=== PATIENT | female | born 1950 | race Caucasian/White ===

== ENCOUNTER 2020-01-02 13:04 | Emergency (ER) | payer OTHER ==
[2020-01-02 13:13] VITALS: TEMP 98.4; BMI 17.2
--- NOTE | 2020-01-02 14:26 | PDOC ---
History of Present Illness - General Chief Complaint: Shortness of Breath Stated Complaint: LBP Time Seen by Provider: 01/02/20 14:12 History Source: Patient Exam Limitations: No Limitations - History of Present Illness Initial Comments: 01/02/20 14:45 69 y.o. F PMHx Pancreatitis and bronchitis. Presenting to [facility] ED due to 5 days of cough productive of white sputum and SOB that stated yesterday morning. Patient states she has pain in her back and chest with cough. Pt. stated she used to have inhalers for bronchitis but has not used them in years. Pt. denies chills, headache, fever, N/V/D. 01/02/20 14:58 PCP: Dr. Wagner PMHx: Pancreatitis, bronhitis Meds: In chart Allergies: Codeine CXR: No Acute pathology 01/02/20 17:45 Is this a multiple visit Asthma Patient?: No Timing/Duration: 1 week Severity: mild Modifying Factors: improves with: movement Associated Symptoms: reports: cough Aspirin Received prior to arrival: Yes: no aspirin today Beta Татьяна Given by EMS(Core Measure): No Beta Татьяна Taken at Home(Core Measure): No Beta Татьяна Not Indicated at this Time(Core Measure): No Past History - Travel History Traveled outside of the country in the last 30 days: No Close contact w/someone who was outside of country & ill: No - Medical History Allergies/Adverse Reactions: Allergies Allergy/AdvReac Type Severity Reaction Status Date / Time codeine Allergy Intermediate SOB Verified 01/02/20 13:06 Home Medications: Ambulatory Orders Diazepam [Valium] 5 mg PO Q8H #4 tablet MDD 2 02/16/17 Albuterol Sulfate Inhaler - [Ventolin HFA Inhaler -] 1 - 2 inh PO Q4H #1 inhaler 01/02/20 Azithromycin [Zithromax Tri-Anjel (3 DAYS) -] 500 mg PO DAILY #3 tablet 01/02/20 predniSONE [Deltasone -] 40 mg PO DAILY #4 tablet 01/02/20 COPD: No GI Disorders: Yes (H/O PANCREATITIS.) - Surgical History Abdominal Surgery: Yes Cholecystectomy: Yes - Psycho-Social/Smoking History Smoking History: Current every day smoker Have you smoked in the past 12 months: Yes Number of Cigarettes Smoked Daily: 10 Information on smoking cessation initiated: Yes 'Breaking Loose' booklet given: 02/16/17 - Substance Abuse Hx (Audit-C & DAST Scrn) How often the patient has a drink containing alcohol: Never Score: In Men: 4 or > Positive; In Women: 3 or > Positive: 0 Screen Result (Pos requires Nsg. Audit-10AR): Negative In the last yr the pt used illegal drug/Rx for NonMed reason: No Score: Yes response is considered Positive: 0 Screen Result (Positive result requires Nsg. DAST-10): Negative Review of Systems - Review of Systems Able to Perform ROS?: Yes Is the patient limited [place] proficient: No Constitutional: No: Chills, Fever HEENTM: No: Blurred Vision, Double Vision Respiratory: Yes: Shortness of Breath, Productive cough Cardiac (ROS): No: Chest Pain, Lightheadedness ABD/GI: No: Constipated, Diarrhea, Nausea, Vomiting : No: Burning, Dysuria Musculoskeletal: Yes: Back Pain. No: Muscle Pain, Muscle Weakness Integumentary: No: Bruising, Erythema, Flushing Neurological: No: Headache, Numbness, Dizziness Hematologic/Lymphatic: No: Easy Bleeding, Easy Bruising *Physical Exam - Vital Signs Last Vital Signs Temp Pulse Resp BP Pulse Ox 98.4 F 50 L 22 H 148/71 98 01/02/20 13:06 01/02/20 13:06 01/02/20 13:06 01/02/20 13:06 01/02/20 13:06 - Physical Exam General Appearance: Yes: Nourished, Appropriately Dressed. No: Apparent Distress Respiratory/Chest: positive: Lungs Clear, Normal Breath Sounds. negative: Chest Tender Cardiovascular: positive: Regular Rhythm, Regular Rate. negative: JVD, Murmur Gastrointestinal/Abdominal: positive: Normal Bowel Sounds, Flat, Soft. negative: Tender, Organomegaly, Pulsatile Mass Musculoskeletal: positive: Normal Inspection. negative: CVA Tenderness Extremity: positive: Normal Inspection, Normal Range of Motion. negative: Tender Integumentary: positive: Normal Color, Dry, Warm Neurologic: positive: Fully Oriented, Alert, Normal Response, Responsive. negative: Confused ED Treatment Course - LABORATORY CBC & Chemistry Diagram: 01/02/20 15:00 01/02/20 15:00 Medical Decision Making - Medical Decision Making 01/02/20 15:06 69 y.o. F PMHx Pancreatitis and bronchitis. Presenting to [facility] ED due to cough and SOB. DDx: COPD exacerbation, pneumonia, bronchitis, covid (low suspicion) CXR: Scoliosis, no acute chest pathology Labs: AST 9, ALT 11 EKG: NSR, L axis deviation Dispo: D/C home on prednisone, azithromycin, albuterol. 01/02/20 17:46 Discharge - Discharge Information Problems reviewed: Yes Clinical Impression/Diagnosis: Cough, Shortness of breath Condition: Improved Disposition: HOME - Admission No - Additional Discharge Information Prescriptions: predniSONE [Deltasone -] 40 mg PO DAILY #4 tablet Albuterol Sulfate Inhaler - [Ventolin HFA Inhaler -] 1 - 2 inh PO Q4H #1 inhaler Azithromycin [Zithromax Tri-Anjel (3 DAYS) -] 500 mg PO DAILY #3 tablet - Follow up/Referral Referrals: Pankaj Wagner MD [Primary Care Provider] - - Patient Discharge Instructions Patient Printed Discharge Instructions: DI for Shortness of Breath Additional Instructions: You presented to [facility] ED due to a cough and SOB. We treated you with steroids, antibiotics and albuterol inhaler. Please call 911 or follow up to the ED if you symptoms persist or worsen. This includes cough, SOB, dizziness. - Post Discharge Activity
[2020-01-02] MEDS ORDERED: ALBUTEROL SO4 HFA INHALER IH ONE ×2 (14:56→15:04)
[2020-01-02] MEDS ORDERED: predniSONE 20 MG TABLET (UD) PO ONE (15:14)
[2020-01-02] MEDS ORDERED: AZITHROMYCIN 250 MG TABLET PO ONE (15:15)
[2020-01-02] MEDS ORDERED: predniSONE 20 MG TABLET (UD) ONE (15:25)
[2020-01-02] MEDS ORDERED: AZITHROMYCIN 500 MG TABLET ONE (15:25)
--- NOTE | 2020-01-02 15:42 | PDOC ---
Documentation entered by Binu Corona SCRIBE, acting as scribe for Ana Luisa Mcmahan MD. Ana Luisa Mcmahan MD: This documentation has been prepared by the Cj amaral Xhesika, SCRIBE, under my direction and personally reviewed by me in its entirety. I confirm that the documentation accurately reflects all work, treatment, procedures, and medical decision making performed by me. Attending Attestation - Resident Resident Name: Jai Suarez - ED Attending Attestation I have performed the following: I have examined & evaluated the patient, The case was reviewed & discussed with the resident, I agree w/resident's findings & plan, Exceptions are as noted - HPI HPI: 01/02/20 14:18 69y/o F with a pmh of pancreatitis who presents to the ED for SOB since yesterday. Pt states 5 days ago she developed a cough with productive white sputum. Pt denies any CP, fever, chills, N/V/D. Denies any URI symptoms. States the SOB and cough are similar to previous episodes of COPD exacerbation/bronchitis or PNA however the R upper back pain is new for her. Allergies: COdeine PCP: Pankaj Castanon - Physicial Exam PE: 01/02/20 15:39 General: non-toxic appearing Chest: +tachypnea, speaking in full sentences, poor air entry, no audible wheezes, no rales CVS : + s1 s2, RRR Back: no midline or paraspinal tenderness - Medical Decision Making 01/02/20 15:40 69 yo F with new productive cough, SOB and R upper back pain, neurologically intact, suspect COPD exacerbation, possibly 2/2 PNA vs. viral syndrome. Doubt ACS as patient denies CP and EKG sinus without ischemic changes. Plan: -labs -COVID testing -cxr -steroids -azithro -albuterol -reassess This clinical encounter is taking place during a federal and state health care emergency attributable to the novel [place] Virus pandemic. The [employer] of the Department of Health and Human Services has declared, pursuant to the Public Health Service Act 319F-3 (42 U.S.C. 247d-6d), that a covered persons activities related to medical countermeasures against COVID-19 will be immune from liability under Federal and State law. 01/06/20 09:59 Labs and imaging reviewed. Patient with resolution of symptoms. Will d/c with rx for azithro and prednisone. Return precautions given, recommend PMD f/u Discharge - Discharge Information Problems reviewed: Yes Clinical Impression/Diagnosis: Cough, Shortness of breath Condition: Improved Disposition: HOME - Additional Discharge Information Prescriptions: predniSONE [Deltasone -] 40 mg PO DAILY #4 tablet Albuterol Sulfate Inhaler - [Ventolin HFA Inhaler -] 1 - 2 inh PO Q4H #1 inhaler Azithromycin [Zithromax Tri-Anjel (3 DAYS) -] 500 mg PO DAILY #3 tablet - Follow up/Referral Referrals: Pankaj Wagner MD [Primary Care Provider] - - Patient Discharge Instructions Patient Printed Discharge Instructions: DI for Shortness of Breath Additional Instructions: You presented to [facility] ED due to a cough and SOB. We treated you with steroids, antibiotics and albuterol inhaler. Please call 911 or follow up to the ED if you symptoms persist or worsen. This includes cough, SOB, dizziness. - Post Discharge Activity
[2020-01-02 16:22] LABS: ALBUMIN 3.7 g/dl (3.4-5.0); BILIRUBIN,TOTAL 0.5 mg/dL (0.2-1); BLOOD UREA NITROGEN 7.6 mg/dL (7-18); CALCIUM 9.4 mg/dL (8.5-10.1); CREATININE 0.7 mg/dL (0.55-1.3); POTASSIUM 4.1 mmol/L (3.5-5.1); TOT PROT 6.9 g/dl (6.4-8.2)
[2020-01-02 16:26] LABS: BASO % 0.6 % (0-2.0); EOS % 0.4 % (0-4.5); HEMATOCRIT 41.6 % (32.4-45.2); HEMOGLOBIN 14.4 GM/dL (10.7-15.3); LYMPH % 26.8 % (8-40); MCH 30.4 pg (25.7-33.7); MCHC 34.6 g/dl (32.0-36.0); MEAN CELL VOLUME 87.9 fl (80-96); MEAN PLT VOLUME 8.7 fl (7.5-11.1); MONO % 6.5 % (3.8-10.2); NEUT % 65.7 % (42.8-82.8); PLATELET COUNT 200 K/MM3 (134-434); RBC 4.73 M/mm3 (3.60-5.2); RDW 13.4 % (11.6-15.6); WHITE BLOOD COUNT 6.8 K/mm3 (4.0-10.0)
[2020-01-02 18:17] VITALS: BP 142/74; PULSE 57
--- NOTE | 2020-01-03 09:43 | EKG ---
Test Reason : Blood Pressure : / mmHG Vent. Rate : 087 BPM Atrial Rate : 087 BPM P-R Int : 090 ms QRS Dur : 084 ms QT Int : 374 ms P-R-T Axes : 077 -69 069 degrees QTc Int : 450 ms SINUS RHYTHM WITH SHORT GA WITH PREMATURE SUPRAVENTRICULAR COMPLEXES LEFT AXIS DEVIATION ABNORMAL ECG WHEN COMPARED WITH ECG OF 18-AUG-2001 23:54, PREMATURE SUPRAVENTRICULAR COMPLEXES ARE NOW PRESENT QT HAS LENGTHENED Confirmed by Alli Horne ([id number]) on 01/03/2020 9:43:16 AM Referred By: Confirmed By:Alli Horne
== END 2020-01-02 18:16 | disposition home or self-care (01) ==
LOC: JER 13:04
DX: R06.02 Shortness of breath (principal)
CPT/HCPCS: 36415; 71046-TC-FY; 80053; 85025; 93005; 93010; 99285-25; U0003

== ENCOUNTER 2021-06-11 15:29 | Inpatient (IN) | payer OTHER ==
[2021-06-11] MEDS ORDERED: DEXAMETHASONE SOD PHOSPHATE 10 MG/1 ML VIAL IVPUSH ONE (15:52)
[2021-06-11] MEDS ORDERED: ALBUTEROL SO4 2.5/IPRATROPIUM 0.5 INH SOL 3 ML VIAL.NEB. NEB ONE (16:13)
[2021-06-11] MEDS ORDERED: DEXAMETHASONE SOD PHOSPHATE 10 MG/1 ML VIAL ONE (16:13)
[2021-06-11] MEDS: ALBUTEROL SO4 2.5/IPRATROPIUM 0.5 INH SOL 3 ML VIAL.NEB. NEB SCH ×4 (16:15→17:00)
[2021-06-11] MEDS ORDERED: CEFTRIAXONE 1,000 MG in DEXTROSE 5%-WATER - 50 ML IVPB ONE (16:40)
[2021-06-11] MEDS ORDERED: AZITHROMYCIN IVPB 500 MG in DEXTROSE 5%-WATER - 250 ML IVPB ONE (16:40)
[2021-06-11 17:04] LABS: BASO % 0.6 % (0-2.0); EOS % 1.6 % (0-4.5); HEMATOCRIT 33.2 % (32.4-45.2); HEMOGLOBIN 10.7 GM/dL (10.7-15.3); LYMPH % 28.7 % (8-40); MCH 27.3 pg (25.7-33.7); MCHC 32.2 g/dl (32.0-36.0); MEAN CELL VOLUME 84.9 fl (80-96); MEAN PLT VOLUME 8.3 fl (7.5-11.1); MONO % 8.3 % (3.8-10.2); NEUT % 60.8 % (42.8-82.8); PLATELET COUNT 270 10^3/uL (134-434); RBC 3.91 M/mm3 (3.60-5.2); RDW 13.8 % (11.6-15.6); WHITE BLOOD COUNT 7.5 K/mm3 (4.0-10.0)
[2021-06-11 17:18] LABS: ALBUMIN 3.6 g/dl (3.4-5.0); BLOOD UREA NITROGEN 23.3 mg/dL (7-18); CALCIUM 9.3 mg/dL (8.5-10.1)
[2021-06-11 17:21] LABS: CREATININE 0.6 mg/dL (0.55-1.3)
[2021-06-11 17:22] LABS: BILIRUBIN,TOTAL 0.4 mg/dL (0.2-1); TOT PROT 6.3 g/dl (6.4-8.2)
[2021-06-11] MEDS ORDERED: CEFTRIAXONE 1 GM/50 ML BAG ONE (18:07)
[2021-06-11] MEDS ORDERED: AZITHROMYCIN IVPB 500 MG/250 ML BAG IVPB ONE (18:07)
[2021-06-12] MEDS: methylPREDNISolone NA SUCC 40 MG/1 ML VIAL IVPUSH SCH ×3 (01:32→17:54)
[2021-06-12] MEDS ORDERED: DEXTROSE 5%-WATER - 50 ML IVPB ONE (09:14)
[2021-06-12] MEDS ORDERED: cefTRIAXone SODIUM 1 GM VIAL ONE (09:14)
[2021-06-12 09:31] LABS: BASO % 0.3 % (0-2.0); HEMATOCRIT 29.4 % (32.4-45.2); HEMOGLOBIN 10.2 GM/dL (10.7-15.3); MCH 28.6 pg (25.7-33.7); MCHC 34.7 g/dl (32.0-36.0); MEAN CELL VOLUME 82.4 fl (80-96); MEAN PLT VOLUME 8.2 fl (7.5-11.1); NEUT % 80.7 % (42.8-82.8); PLATELET COUNT 229 10^3/uL (134-434); RBC 3.57 M/mm3 (3.60-5.2); RDW 13.9 % (11.6-15.6); WHITE BLOOD COUNT 2.8 K/mm3 (4.0-10.0)
[2021-06-12] MEDS: ENOXAPARIN NA (PORCINE) 40 MG/0.4 ML DISP.SYRIN SQ SCH (10:14)
[2021-06-12] MEDS: AZITHROMYCIN IVPB 250 MG in DEXTROSE 5%-WATER - 250 ML IVPB SCH (10:14)
[2021-06-12] MEDS: CEFTRIAXONE 1 GM in DEXTROSE 5%-WATER - 50 ML IVPB SCH (10:14)
[2021-06-12 10:15] LABS: ALBUMIN 3.3 g/dl (3.4-5.0); BLOOD UREA NITROGEN 19.8 mg/dL (7-18); CALCIUM 9.2 mg/dL (8.5-10.1)
[2021-06-12 10:18] LABS: CREATININE 0.7 mg/dL (0.55-1.3)
[2021-06-12] MEDS: BUDESONIDE/FORMETEROL FUMARATE 160/4.5 mcg INHALER IH SCH ×2 (10:19→21:53)
[2021-06-12 10:20] LABS: BILIRUBIN,TOTAL 0.4 mg/dL (0.2-1)
[2021-06-12] MEDS: ALBUTEROL SO4 HFA INHALER IH PRN ×2 (16:08→20:21)
[2021-06-13] MEDS: methylPREDNISolone NA SUCC 40 MG/1 ML VIAL IVPUSH SCH ×3 (03:02→18:06)
[2021-06-13] MEDS: BUDESONIDE/FORMETEROL FUMARATE 160/4.5 mcg INHALER IH SCH ×2 (10:04→21:31)
[2021-06-13 10:46] LABS: BASO % 0.1 % (0-2.0); HEMATOCRIT 34.8 % (32.4-45.2); HEMOGLOBIN 11.8 GM/dL (10.7-15.3); LYMPH % 11.8 % (8-40); MCH 28.2 pg (25.7-33.7); MCHC 33.8 g/dl (32.0-36.0); MEAN CELL VOLUME 83.5 fl (80-96); MEAN PLT VOLUME 8.7 fl (7.5-11.1); NEUT % 85.1 % (42.8-82.8); PLATELET COUNT 335 10^3/uL (134-434); RBC 4.17 M/mm3 (3.60-5.2); RDW 13.9 % (11.6-15.6); WHITE BLOOD COUNT 7.3 K/mm3 (4.0-10.0)
[2021-06-13] MEDS ORDERED: cefTRIAXone SODIUM 1 GM VIAL ONE (10:55)
[2021-06-13] MEDS ORDERED: DEXTROSE 5%-WATER - 50 ML IVPB ONE (10:55)
[2021-06-13] MEDS: ENOXAPARIN NA (PORCINE) 40 MG/0.4 ML DISP.SYRIN SQ SCH (11:07)
[2021-06-13] MEDS: CEFTRIAXONE 1 GM in DEXTROSE 5%-WATER - 50 ML IVPB SCH (11:07)
[2021-06-13 11:09] LABS: BLOOD UREA NITROGEN 31.8 mg/dL (7-18); CALCIUM 9.4 mg/dL (8.5-10.1)
[2021-06-13 11:10] LABS: ALBUMIN 3.6 g/dl (3.4-5.0)
[2021-06-13 11:12] LABS: CREATININE 0.9 mg/dL (0.55-1.3)
[2021-06-13 11:14] LABS: BILIRUBIN,TOTAL 0.6 mg/dL (0.2-1); TOT PROT 6.7 g/dl (6.4-8.2)
[2021-06-13] MEDS: AZITHROMYCIN IVPB 250 MG in DEXTROSE 5%-WATER - 250 ML IVPB SCH (11:23)
[2021-06-13] MEDS: ALBUTEROL SO4 2.5/IPRATROPIUM 0.5 INH SOL 3 ML VIAL.NEB. NEB SCH ×2 (13:05→21:28)
[2021-06-13] MEDS: ACETAMINOPHEN 500 MG TABLET (FP) PO PRN (18:05)
[2021-06-14] MEDS: methylPREDNISolone NA SUCC 40 MG/1 ML VIAL IVPUSH SCH ×3 (01:27→17:26)
[2021-06-14] MEDS: ALBUTEROL SO4 2.5/IPRATROPIUM 0.5 INH SOL 3 ML VIAL.NEB. NEB SCH ×3 (08:35→20:10)
[2021-06-14] MEDS: ENOXAPARIN NA (PORCINE) 40 MG/0.4 ML DISP.SYRIN SQ SCH (09:15)
[2021-06-14] MEDS: BUDESONIDE/FORMETEROL FUMARATE 160/4.5 mcg INHALER IH SCH ×2 (09:15→21:07)
[2021-06-14 13:08] LABS: SARS-CoV-2 NAA Not Detected (Not Detected)
[2021-06-14] MEDS: ACETAMINOPHEN 500 MG TABLET (FP) PO PRN (13:45)
[2021-06-14] MEDS: POLYETHYLENE GLYCOL (HEALTHYLAX) 3350 17 GM PACKET PO SCH (20:54)
[2021-06-14] MEDS: SENNOSIDES 8.6MG TABLET (FP) PO SCH (21:08)
[2021-06-15] MEDS: methylPREDNISolone NA SUCC 40 MG/1 ML VIAL IVPUSH SCH ×3 (01:21→17:31)
[2021-06-15] MEDS: ACETAMINOPHEN 500 MG TABLET (FP) PO PRN ×3 (04:31→21:13)
[2021-06-15] MEDS: ALBUTEROL SO4 2.5/IPRATROPIUM 0.5 INH SOL 3 ML VIAL.NEB. NEB SCH ×3 (07:50→20:58)
[2021-06-15] MEDS: ENOXAPARIN NA (PORCINE) 40 MG/0.4 ML DISP.SYRIN SQ SCH (09:32)
[2021-06-15] MEDS: POLYETHYLENE GLYCOL (HEALTHYLAX) 3350 17 GM PACKET PO SCH (09:32)
[2021-06-15] MEDS: BUDESONIDE/FORMETEROL FUMARATE 160/4.5 mcg INHALER IH SCH ×2 (09:32→21:14)
[2021-06-15] MEDS: SENNOSIDES 8.6MG TABLET (FP) PO SCH ×2 (09:32→21:13)
[2021-06-15] MEDS ORDERED: ONDANSETRON 4 MG/2 ML VIAL IVPUSH PRN (18:07)
[2021-06-15] MEDS: PANTOPRAZOLE 40 MG TABLET PO SCH (18:17)
[2021-06-16] MEDS: methylPREDNISolone NA SUCC 40 MG/1 ML VIAL IVPUSH SCH ×2 (01:30→09:31)
[2021-06-16] MEDS: ALBUTEROL SO4 2.5/IPRATROPIUM 0.5 INH SOL 3 ML VIAL.NEB. NEB SCH ×3 (08:25→20:37)
[2021-06-16 09:05] LABS: HEMATOCRIT 31.6 % (32.4-45.2); HEMOGLOBIN 10.6 GM/dL (10.7-15.3); MCH 28.2 pg (25.7-33.7); MCHC 33.6 g/dl (32.0-36.0); MEAN CELL VOLUME 83.9 fl (80-96); MEAN PLT VOLUME 8.8 fl (7.5-11.1); MONO % 6.7 % (3.8-10.2); NEUT % 80.3 % (42.8-82.8); PLATELET COUNT 225 10^3/uL (134-434); RBC 3.76 M/mm3 (3.60-5.2); RDW 13.5 % (11.6-15.6); WHITE BLOOD COUNT 3.9 K/mm3 (4.0-10.0)
[2021-06-16 09:26] LABS: ALBUMIN 3.2 g/dl (3.4-5.0)
[2021-06-16 09:27] LABS: BLOOD UREA NITROGEN 40.6 mg/dL (7-18)
[2021-06-16 09:28] LABS: CALCIUM 9.3 mg/dL (8.5-10.1)
[2021-06-16 09:29] LABS: CREATININE 0.7 mg/dL (0.55-1.3)
[2021-06-16] MEDS: BUDESONIDE/FORMETEROL FUMARATE 160/4.5 mcg INHALER IH SCH ×2 (09:30→21:26)
[2021-06-16 09:31] LABS: BILIRUBIN,TOTAL 0.3 mg/dL (0.2-1); TOT PROT 5.8 g/dl (6.4-8.2)
[2021-06-16] MEDS: ENOXAPARIN NA (PORCINE) 40 MG/0.4 ML DISP.SYRIN SQ SCH (09:31)
[2021-06-16] MEDS: PANTOPRAZOLE 40 MG TABLET PO SCH (09:32)
[2021-06-16] MEDS: SENNOSIDES 8.6MG TABLET (FP) PO SCH ×2 (09:32→21:26)
[2021-06-16] MEDS: POLYETHYLENE GLYCOL (HEALTHYLAX) 3350 17 GM PACKET PO SCH (09:32)
[2021-06-16] MEDS: predniSONE 20 MG TABLET (UD) PO SCH (14:04)
[2021-06-17] MEDS: ALBUTEROL SO4 2.5/IPRATROPIUM 0.5 INH SOL 3 ML VIAL.NEB. NEB SCH ×3 (07:58→19:37)
[2021-06-17] MEDS: ACETAMINOPHEN 500 MG TABLET (FP) PO PRN (08:05)
[2021-06-17] MEDS: ENOXAPARIN NA (PORCINE) 40 MG/0.4 ML DISP.SYRIN SQ SCH (10:13)
[2021-06-17] MEDS: SENNOSIDES 8.6MG TABLET (FP) PO SCH (10:16)
[2021-06-17] MEDS: predniSONE 20 MG TABLET (UD) PO SCH (10:16)
[2021-06-17] MEDS: PANTOPRAZOLE 40 MG TABLET PO SCH (10:16)
[2021-06-17] MEDS: BUDESONIDE/FORMETEROL FUMARATE 160/4.5 mcg INHALER IH SCH (10:16)
[2021-06-17] MEDS: POLYETHYLENE GLYCOL (HEALTHYLAX) 3350 17 GM PACKET PO SCH (10:17)
[2021-06-17 13:57] VITALS: BP 120/73; PULSE 94; TEMP 98.2
[2021-06-17 20:50] VITALS: BMI 14.0
== END 2021-06-17 21:36 | disposition home or self-care (01) | DRG 190 ==
LOC: JER 15:29 → JERBED 19:16 → J6S 06-12 00:03
PROVIDERS: ADMIT Internal Medicine; ATTEND Internal Medicine
PROC: 0HBRXZZ Excision of Toe Nail, External Approach (ICD-10-PCS; principal; 2021-06-14)
PROC: 0HBRXZZ Excision of Toe Nail, External Approach (ICD-10-PCS; 2021-06-14)
PROC: 0HBRXZZ Excision of Toe Nail, External Approach (ICD-10-PCS; 2021-06-14)
PROC: 0HBRXZZ Excision of Toe Nail, External Approach (ICD-10-PCS; 2021-06-14)
PROC: 0HBRXZZ Excision of Toe Nail, External Approach (ICD-10-PCS; 2021-06-14)
PROC: 0HBRXZZ Excision of Toe Nail, External Approach (ICD-10-PCS; 2021-06-14)
PROC: 0HBRXZZ Excision of Toe Nail, External Approach (ICD-10-PCS; 2021-06-14)
PROC: 0HBRXZZ Excision of Toe Nail, External Approach (ICD-10-PCS; 2021-06-14)
PROC: 0HBRXZZ Excision of Toe Nail, External Approach (ICD-10-PCS; 2021-06-14)
PROC: 0HBRXZZ Excision of Toe Nail, External Approach (ICD-10-PCS; 2021-06-14)
DX: J44.1 Chronic obstructive pulmonary disease with (acute) exacerbation (principal); E43 Unspecified severe protein-calorie malnutrition; R64 Cachexia; Z68.1 Body mass index [BMI] 19.9 or less, adult; K59.00 Constipation, unspecified; M54.50 Low back pain, unspecified; B35.1 Tinea unguium
CPT/HCPCS: 36415; 71045-TC-FY; 71250-TC; 72070-TC-FY; 80053; 84484; 85025; 93005; 93010; 94640; 94761; 97116-GP; 97162-GP; 99285-25; C9803; J1100; U0003; U0005

== ENCOUNTER 2021-08-11 13:36 | Inpatient (IN) | payer OTHER ==
[2021-08-11 14:31] LABS: BASO % 0.4 % (0-2.0); EOS % 0.2 % (0-4.5); HEMATOCRIT 28.4 % (32.4-45.2); HEMOGLOBIN 9.1 GM/dL (10.7-15.3); LYMPH % 16.2 % (8-40); MCH 25.2 pg (25.7-33.7); MCHC 32.2 g/dl (32.0-36.0); MEAN CELL VOLUME 78.3 fl (80-96); MEAN PLT VOLUME 7.4 fl (7.5-11.1); MONO % 8.1 % (3.8-10.2); NEUT % 75.1 % (42.8-82.8); PLATELET COUNT 215 10^3/uL (134-434); RBC 3.62 M/mm3 (3.60-5.2); RDW 16.1 % (11.6-15.6); WHITE BLOOD COUNT 6.5 K/mm3 (4.0-10.0)
[2021-08-11 14:49] LABS: ALBUMIN 3.4 g/dl (3.4-5.0); CALCIUM 8.9 mg/dL (8.5-10.1)
[2021-08-11 14:50] LABS: BLOOD UREA NITROGEN 29.7 mg/dL (7-18)
[2021-08-11 14:52] LABS: CREATININE 0.8 mg/dL (0.55-1.3)
[2021-08-11 14:54] LABS: BILIRUBIN,TOTAL 0.4 mg/dL (0.2-1)
[2021-08-11 15:06] LABS: INR 1.05 (0.83-1.09); PROTHROMBIN TIME (PATIENT) 12.1 SEC (9.7-13.0)
[2021-08-11] MEDS ORDERED: methylPREDNISolone NA SUCC 125 MG/2 ML VIAL IVPUSH ONE (15:24)
[2021-08-11] MEDS ORDERED: methylPREDNISolone NA SUCC 125 MG/2 ML VIAL ONE (15:41)
[2021-08-11] MEDS: ALBUTEROL SO4 2.5/IPRATROPIUM 0.5 INH SOL 3 ML VIAL.NEB. NEB SCH (16:16)
[2021-08-11] MEDS ORDERED: CEFTRIAXONE 1,000 MG in DEXTROSE 5%-WATER - 50 ML IVPB ONE (16:58)
[2021-08-11] MEDS ORDERED: CEFTRIAXONE 1 GM/50 ML BAG ONE (17:47)
[2021-08-12] MEDS ORDERED: ACETAMINOPHEN 325 MG TABLET (FP) ONE (03:35)
[2021-08-12] MEDS: DEXTROSE 5%-0.45% SALINE 1,000 ML IV SCH (03:40)
[2021-08-12] MEDS: methylPREDNISolone NA SUCC 40 MG/1 ML VIAL IVPUSH SCH ×3 (03:45→18:44)
[2021-08-12] MEDS ORDERED: CEFTRIAXONE 1 GM/50 ML BAG ONE (09:28)
[2021-08-12] MEDS ORDERED: HEPARIN NA (PORCINE) 5,000 UNITS/ML 1ML VIAL ONE (09:28)
[2021-08-12] MEDS ORDERED: PANTOPRAZOLE 40 MG TABLET PO ONE (09:28)
[2021-08-12] MEDS ORDERED: AZITHROMYCIN IVPB 500 MG/250 ML BAG IVPB ONE (09:29)
[2021-08-12] MEDS ORDERED: methylPREDNISolone NA SUCC 40 MG/1 ML VIAL ONE ×2 (09:29→18:40)
[2021-08-12] MEDS: CEFTRIAXONE 1 GM in DEXTROSE 5%-WATER - 50 ML IVPB SCH (09:38)
[2021-08-12] MEDS: PANTOPRAZOLE 40 MG TABLET PO SCH (09:45)
[2021-08-12] MEDS: HEPARIN NA (PORCINE) 5,000 UNITS/ML 1ML VIAL SQ SCH ×2 (09:52→21:28)
[2021-08-12] MEDS: BUDESONIDE/FORMETEROL FUMARATE 160/4.5 mcg INHALER IH SCH ×2 (11:33→21:47)
[2021-08-12] MEDS: AZITHROMYCIN IVPB 250 MG in DEXTROSE 5%-WATER - 250 ML IVPB SCH (11:37)
[2021-08-12] MEDS ORDERED: POLYETHYLENE GLYCOL (HEALTHYLAX) 3350 17 GM PACKET ONE (14:16)
[2021-08-12] MEDS: POLYETHYLENE GLYCOL (HEALTHYLAX) 3350 17 GM PACKET PO SCH (14:19)
[2021-08-12] MEDS: ALBUTEROL SO4 2.5/IPRATROPIUM 0.5 INH SOL 3 ML VIAL.NEB. NEB SCH ×2 (18:44→20:00)
[2021-08-12] MEDS ORDERED: METOCLOPRAMIDE HCL 10 MG TABLET (FP) PO ONE ×2 (18:46→19:06)
[2021-08-12 22:44] VITALS: BMI 14.7
[2021-08-13] MEDS: methylPREDNISolone NA SUCC 40 MG/1 ML VIAL IVPUSH SCH ×3 (02:05→18:09)
[2021-08-13 08:02] LABS: BASO % 0.1 % (0-2.0); HEMATOCRIT 29.3 % (32.4-45.2); HEMOGLOBIN 9.6 GM/dL (10.7-15.3); LYMPH % 14.9 % (8-40); MCH 25.3 pg (25.7-33.7); MCHC 32.6 g/dl (32.0-36.0); MEAN CELL VOLUME 77.5 fl (80-96); MEAN PLT VOLUME 8.3 fl (7.5-11.1); MONO % 4.9 % (3.8-10.2); NEUT % 80.1 % (42.8-82.8); PLATELET COUNT 199 10^3/uL (134-434); RBC 3.79 M/mm3 (3.60-5.2); RDW 15.5 % (11.6-15.6); WHITE BLOOD COUNT 2.9 K/mm3 (4.0-10.0)
[2021-08-13 08:38] LABS: BLOOD UREA NITROGEN 23.8 mg/dL (7-18); CALCIUM 8.7 mg/dL (8.5-10.1)
[2021-08-13 08:41] LABS: CREATININE 0.6 mg/dL (0.55-1.3)
[2021-08-13 08:43] LABS: BILIRUBIN,TOTAL 0.3 mg/dL (0.2-1); TOT PROT 5.6 g/dl (6.4-8.2)
[2021-08-13] MEDS: ALBUTEROL SO4 2.5/IPRATROPIUM 0.5 INH SOL 3 ML VIAL.NEB. NEB SCH ×5 (08:50→20:10)
[2021-08-13] MEDS ORDERED: DEXTROSE 5%-WATER - 50 ML IVPB ONE (10:44)
[2021-08-13] MEDS ORDERED: cefTRIAXone SODIUM 1 GM VIAL ONE (10:44)
[2021-08-13] MEDS: POLYETHYLENE GLYCOL (HEALTHYLAX) 3350 17 GM PACKET PO SCH (10:59)
[2021-08-13] MEDS: CEFTRIAXONE 1 GM in DEXTROSE 5%-WATER - 50 ML IVPB SCH (10:59)
[2021-08-13] MEDS: HEPARIN NA (PORCINE) 5,000 UNITS/ML 1ML VIAL SQ SCH ×2 (10:59→22:16)
[2021-08-13] MEDS: PANTOPRAZOLE 40 MG TABLET PO SCH (10:59)
[2021-08-13] MEDS: BUDESONIDE/FORMETEROL FUMARATE 160/4.5 mcg INHALER IH SCH ×2 (11:00→22:17)
[2021-08-13] MEDS: AZITHROMYCIN IVPB 250 MG in DEXTROSE 5%-WATER - 250 ML IVPB SCH (11:00)
[2021-08-13 16:08] LABS: SARS-CoV-2 NAA Not Detected (Not Detected)
[2021-08-13] MEDS: DEXTROSE 5%-0.45% SALINE 1,000 ML IV SCH (18:09)
[2021-08-14] MEDS: DEXTROSE 5%-0.45% SALINE 1,000 ML IV SCH ×2 (03:17→10:20)
[2021-08-14] MEDS: methylPREDNISolone NA SUCC 40 MG/1 ML VIAL IVPUSH SCH ×3 (03:17→17:34)
[2021-08-14] MEDS: ALBUTEROL SO4 2.5/IPRATROPIUM 0.5 INH SOL 3 ML VIAL.NEB. NEB SCH ×4 (07:30→20:37)
[2021-08-14 09:19] LABS: N-TERMINAL BNP 540.6 pg/ml (5-125)
[2021-08-14] MEDS ORDERED: cefTRIAXone SODIUM 1 GM VIAL ONE (09:36)
[2021-08-14] MEDS ORDERED: DEXTROSE 5%-WATER - 50 ML IVPB ONE (09:37)
[2021-08-14] MEDS: HEPARIN NA (PORCINE) 5,000 UNITS/ML 1ML VIAL SQ SCH ×2 (10:14→21:45)
[2021-08-14] MEDS: POLYETHYLENE GLYCOL (HEALTHYLAX) 3350 17 GM PACKET PO SCH (10:14)
[2021-08-14] MEDS: PANTOPRAZOLE 40 MG TABLET PO SCH (10:14)
[2021-08-14] MEDS: AZITHROMYCIN IVPB 250 MG in DEXTROSE 5%-WATER - 250 ML IVPB SCH (10:15)
[2021-08-14] MEDS: CEFTRIAXONE 1 GM in DEXTROSE 5%-WATER - 50 ML IVPB SCH (10:15)
[2021-08-14] MEDS: BUDESONIDE/FORMETEROL FUMARATE 160/4.5 mcg INHALER IH SCH ×2 (10:17→21:47)
[2021-08-14] MEDS: SIMETHICONE 80 MG TAB.CHEW (FP) PO PRN (21:45)
[2021-08-15] MEDS: methylPREDNISolone NA SUCC 40 MG/1 ML VIAL IVPUSH SCH ×3 (02:05→17:21)
[2021-08-15] MEDS: ALBUTEROL SO4 2.5/IPRATROPIUM 0.5 INH SOL 3 ML VIAL.NEB. NEB SCH ×4 (07:15→20:19)
[2021-08-15 07:56] LABS: HEMATOCRIT 30.6 % (32.4-45.2); LYMPH % 8.5 % (8-40); MCHC 32.5 g/dl (32.0-36.0); MEAN CELL VOLUME 76.8 fl (80-96); MEAN PLT VOLUME 8.5 fl (7.5-11.1); MONO % 4.4 % (3.8-10.2); NEUT % 87.1 % (42.8-82.8); PLATELET COUNT 205 10^3/uL (134-434); RBC 3.99 M/mm3 (3.60-5.2); RDW 15.3 % (11.6-15.6); WHITE BLOOD COUNT 6.4 K/mm3 (4.0-10.0)
[2021-08-15 08:19] LABS: ALBUMIN 2.8 g/dl (3.4-5.0); CALCIUM 8.4 mg/dL (8.5-10.1)
[2021-08-15 08:20] LABS: BLOOD UREA NITROGEN 24.1 mg/dL (7-18)
[2021-08-15 08:23] LABS: CREATININE 0.6 mg/dL (0.55-1.3)
[2021-08-15 08:24] LABS: BILIRUBIN,TOTAL 0.4 mg/dL (0.2-1); TOT PROT 5.4 g/dl (6.4-8.2)
[2021-08-15] MEDS ORDERED: DEXTROSE 5%-WATER - 50 ML IVPB ONE (09:42)
[2021-08-15] MEDS ORDERED: cefTRIAXone SODIUM 1 GM VIAL ONE (09:42)
[2021-08-15] MEDS: HEPARIN NA (PORCINE) 5,000 UNITS/ML 1ML VIAL SQ SCH ×2 (10:36→21:37)
[2021-08-15] MEDS: POLYETHYLENE GLYCOL (HEALTHYLAX) 3350 17 GM PACKET PO SCH (10:36)
[2021-08-15] MEDS: PANTOPRAZOLE 40 MG TABLET PO SCH (10:38)
[2021-08-15] MEDS: CEFTRIAXONE 1 GM in DEXTROSE 5%-WATER - 50 ML IVPB SCH (10:39)
[2021-08-15] MEDS: BUDESONIDE/FORMETEROL FUMARATE 160/4.5 mcg INHALER IH SCH ×2 (10:40→21:42)
[2021-08-15] MEDS: AZITHROMYCIN IVPB 250 MG in DEXTROSE 5%-WATER - 250 ML IVPB SCH (10:40)
[2021-08-15] MEDS: SIMETHICONE 80 MG TAB.CHEW (FP) PO PRN ×2 (13:14→19:10)
[2021-08-15] MEDS: DEXTROSE 5%-0.45% SALINE 1,000 ML IV SCH (17:20)
[2021-08-15] MEDS: busPIRone HCL 5 MG TABLET PO SCH (21:37)
[2021-08-16] MEDS: methylPREDNISolone NA SUCC 40 MG/1 ML VIAL IVPUSH SCH ×4 (01:30→22:08)
[2021-08-16] MEDS ORDERED: ALPRAZolam 0.25 MG TABLET PO ONE (06:15)
[2021-08-16] MEDS: DEXTROSE 5%-0.45% SALINE 1,000 ML IV SCH (06:18)
[2021-08-16] MEDS: ALBUTEROL SO4 2.5/IPRATROPIUM 0.5 INH SOL 3 ML VIAL.NEB. NEB SCH ×4 (07:35→20:00)
[2021-08-16] MEDS ORDERED: cefTRIAXone SODIUM 1 GM VIAL ONE (09:21)
[2021-08-16] MEDS ORDERED: DEXTROSE 5%-WATER - 50 ML IVPB ONE (09:21)
[2021-08-16] MEDS: HEPARIN NA (PORCINE) 5,000 UNITS/ML 1ML VIAL SQ SCH ×2 (09:33→22:09)
[2021-08-16] MEDS: busPIRone HCL 5 MG TABLET PO SCH ×2 (09:34→22:08)
[2021-08-16] MEDS: PANTOPRAZOLE 40 MG TABLET PO SCH (09:34)
[2021-08-16] MEDS: POLYETHYLENE GLYCOL (HEALTHYLAX) 3350 17 GM PACKET PO SCH (09:34)
[2021-08-16] MEDS: CEFTRIAXONE 1 GM in DEXTROSE 5%-WATER - 50 ML IVPB SCH (09:35)
[2021-08-16] MEDS: AZITHROMYCIN IVPB 250 MG in DEXTROSE 5%-WATER - 250 ML IVPB SCH (09:36)
[2021-08-16] MEDS: BUDESONIDE/FORMETEROL FUMARATE 160/4.5 mcg INHALER IH SCH ×2 (09:36→22:14)
[2021-08-16] MEDS: ALPRAZolam 0.25 MG TABLET PO PRN (18:21)
[2021-08-16] MEDS: SIMETHICONE 80 MG TAB.CHEW (FP) PO PRN (22:08)
[2021-08-16] MEDS: SENNOSIDES 8.6MG TABLET (FP) PO SCH (22:08)
[2021-08-17] MEDS: ALBUTEROL SO4 2.5/IPRATROPIUM 0.5 INH SOL 3 ML VIAL.NEB. NEB SCH ×2 (08:25→13:02)
[2021-08-17] MEDS: ACETAMINOPHEN 325 MG TABLET (FP) PO PRN (09:17)
[2021-08-17] MEDS: SIMETHICONE 80 MG TAB.CHEW (FP) PO PRN (09:18)
[2021-08-17] MEDS ORDERED: cefTRIAXone SODIUM 1 GM VIAL ONE (10:09)
[2021-08-17] MEDS ORDERED: DEXTROSE 5%-WATER - 50 ML IVPB ONE (10:09)
[2021-08-17] MEDS: AZITHROMYCIN IVPB 250 MG in DEXTROSE 5%-WATER - 250 ML IVPB SCH (10:20)
[2021-08-17] MEDS: HEPARIN NA (PORCINE) 5,000 UNITS/ML 1ML VIAL SQ SCH ×2 (10:21→21:46)
[2021-08-17] MEDS: BUDESONIDE/FORMETEROL FUMARATE 160/4.5 mcg INHALER IH SCH ×2 (10:22→21:46)
[2021-08-17] MEDS: PANTOPRAZOLE 40 MG TABLET PO SCH (10:22)
[2021-08-17] MEDS: POLYETHYLENE GLYCOL (HEALTHYLAX) 3350 17 GM PACKET PO SCH (10:22)
[2021-08-17] MEDS: busPIRone HCL 5 MG TABLET PO SCH ×2 (10:22→21:45)
[2021-08-17] MEDS: methylPREDNISolone NA SUCC 40 MG/1 ML VIAL IVPUSH SCH ×2 (10:22→21:46)
[2021-08-17] MEDS: CEFTRIAXONE 1 GM in DEXTROSE 5%-WATER - 50 ML IVPB SCH (11:25)
[2021-08-17] MEDS: ALPRAZolam 0.25 MG TABLET PO PRN (15:17)
[2021-08-17] MEDS ORDERED: ALBUTEROL SO4 2.5/IPRATROPIUM 0.5 INH SOL 3 ML VIAL.NEB. NEB PRN (17:42)
[2021-08-17] MEDS: SENNOSIDES 8.6MG TABLET (FP) PO SCH (21:45)
[2021-08-18] MEDS: ACETAMINOPHEN 325 MG TABLET (FP) PO PRN ×2 (04:19→16:36)
[2021-08-18 06:58] LABS: HEMATOCRIT 29.2 % (32.4-45.2); HEMOGLOBIN 9.6 GM/dL (10.7-15.3); LYMPH % 10.7 % (8-40); MCH 24.9 pg (25.7-33.7); MCHC 32.7 g/dl (32.0-36.0); MEAN CELL VOLUME 76.3 fl (80-96); MEAN PLT VOLUME 8.6 fl (7.5-11.1); MONO % 3.8 % (3.8-10.2); NEUT % 85.5 % (42.8-82.8); PLATELET COUNT 242 10^3/uL (134-434); RBC 3.83 M/mm3 (3.60-5.2); RDW 15.7 % (11.6-15.6); WHITE BLOOD COUNT 7.5 K/mm3 (4.0-10.0)
[2021-08-18 07:31] LABS: CALCIUM 8.6 mg/dL (8.5-10.1)
[2021-08-18 07:32] LABS: ALBUMIN 2.5 g/dl (3.4-5.0); BLOOD UREA NITROGEN 30.7 mg/dL (7-18)
[2021-08-18 07:35] LABS: CREATININE 0.6 mg/dL (0.55-1.3)
[2021-08-18 07:36] LABS: TOT PROT 5.1 g/dl (6.4-8.2)
[2021-08-18 07:37] LABS: BILIRUBIN,TOTAL 0.2 mg/dL (0.2-1)
[2021-08-18] MEDS ORDERED: cefTRIAXone SODIUM 1 GM VIAL ONE (09:01)
[2021-08-18] MEDS ORDERED: DEXTROSE 5%-WATER - 50 ML IVPB ONE (09:01)
[2021-08-18] MEDS: AZITHROMYCIN IVPB 250 MG in DEXTROSE 5%-WATER - 250 ML IVPB SCH (09:09)
[2021-08-18] MEDS: POLYETHYLENE GLYCOL (HEALTHYLAX) 3350 17 GM PACKET PO SCH (09:09)
[2021-08-18] MEDS: HEPARIN NA (PORCINE) 5,000 UNITS/ML 1ML VIAL SQ SCH ×2 (09:09→21:51)
[2021-08-18] MEDS: methylPREDNISolone NA SUCC 40 MG/1 ML VIAL IVPUSH SCH ×2 (09:09→21:51)
[2021-08-18] MEDS: PANTOPRAZOLE 40 MG TABLET PO SCH (09:10)
[2021-08-18] MEDS: SIMETHICONE 80 MG TAB.CHEW (FP) PO PRN (09:10)
[2021-08-18] MEDS: busPIRone HCL 5 MG TABLET PO SCH ×2 (09:10→21:51)
[2021-08-18] MEDS: BUDESONIDE/FORMETEROL FUMARATE 160/4.5 mcg INHALER IH SCH ×2 (09:12→21:52)
[2021-08-18] MEDS: CEFTRIAXONE 1 GM in DEXTROSE 5%-WATER - 50 ML IVPB SCH (11:47)
[2021-08-18] MEDS: ALPRAZolam 0.25 MG TABLET PO PRN (17:58)
[2021-08-18] MEDS: SENNOSIDES 8.6MG TABLET (FP) PO SCH (21:51)
[2021-08-19] MEDS ORDERED: DEXTROSE 5%-WATER - 50 ML IVPB ONE (09:39)
[2021-08-19] MEDS ORDERED: cefTRIAXone SODIUM 1 GM VIAL ONE (09:39)
[2021-08-19] MEDS: CEFTRIAXONE 1 GM in DEXTROSE 5%-WATER - 50 ML IVPB SCH (10:09)
[2021-08-19] MEDS: POLYETHYLENE GLYCOL (HEALTHYLAX) 3350 17 GM PACKET PO SCH (10:10)
[2021-08-19] MEDS: PANTOPRAZOLE 40 MG TABLET PO SCH (10:10)
[2021-08-19] MEDS: HEPARIN NA (PORCINE) 5,000 UNITS/ML 1ML VIAL SQ SCH ×2 (10:10→21:37)
[2021-08-19] MEDS: methylPREDNISolone NA SUCC 40 MG/1 ML VIAL IVPUSH SCH ×2 (10:10→21:37)
[2021-08-19] MEDS: busPIRone HCL 5 MG TABLET PO SCH ×2 (10:10→21:37)
[2021-08-19] MEDS: BUDESONIDE/FORMETEROL FUMARATE 160/4.5 mcg INHALER IH SCH ×2 (10:13→21:37)
[2021-08-19] MEDS: AZITHROMYCIN IVPB 250 MG in DEXTROSE 5%-WATER - 250 ML IVPB SCH (10:23)
[2021-08-19] MEDS: guaiFENesin 600 MG TABLET.ER (FP) PO SCH ×2 (14:41→21:37)
[2021-08-19] MEDS: SENNOSIDES 8.6MG TABLET (FP) PO SCH (21:37)
[2021-08-20] MEDS: ALPRAZolam 0.25 MG TABLET PO PRN (01:42)
[2021-08-20] MEDS ORDERED: cefTRIAXone SODIUM 1 GM VIAL ONE (09:02)
[2021-08-20] MEDS ORDERED: DEXTROSE 5%-WATER - 50 ML IVPB ONE (09:03)
[2021-08-20] MEDS: guaiFENesin 600 MG TABLET.ER (FP) PO SCH ×2 (09:33→21:41)
[2021-08-20] MEDS: HEPARIN NA (PORCINE) 5,000 UNITS/ML 1ML VIAL SQ SCH ×2 (09:33→21:41)
[2021-08-20] MEDS: PANTOPRAZOLE 40 MG TABLET PO SCH (09:33)
[2021-08-20] MEDS: AZITHROMYCIN IVPB 250 MG in DEXTROSE 5%-WATER - 250 ML IVPB SCH (09:33)
[2021-08-20] MEDS: busPIRone HCL 5 MG TABLET PO SCH ×2 (09:33→21:41)
[2021-08-20] MEDS: methylPREDNISolone NA SUCC 40 MG/1 ML VIAL IVPUSH SCH ×2 (09:33→21:41)
[2021-08-20] MEDS: POLYETHYLENE GLYCOL (HEALTHYLAX) 3350 17 GM PACKET PO SCH ×2 (09:34→11:00)
[2021-08-20] MEDS: CEFTRIAXONE 1 GM in DEXTROSE 5%-WATER - 50 ML IVPB SCH (09:34)
[2021-08-20] MEDS: BUDESONIDE/FORMETEROL FUMARATE 160/4.5 mcg INHALER IH SCH ×2 (09:49→21:42)
[2021-08-20] MEDS ORDERED: SIMETHICONE 80 MG TAB.CHEW (FP) PO PRN (16:37)
[2021-08-20] MEDS: SENNOSIDES 8.6MG TABLET (FP) PO SCH (21:41)
[2021-08-21] MEDS ORDERED: DEXTROSE 5%-WATER - 50 ML IVPB ONE (11:46)
[2021-08-21] MEDS ORDERED: cefTRIAXone SODIUM 1 GM VIAL ONE (11:46)
[2021-08-21] MEDS: guaiFENesin 600 MG TABLET.ER (FP) PO SCH ×2 (11:50→22:08)
[2021-08-21] MEDS: PANTOPRAZOLE 40 MG TABLET PO SCH (11:50)
[2021-08-21] MEDS: busPIRone HCL 5 MG TABLET PO SCH ×2 (11:51→22:08)
[2021-08-21] MEDS: HEPARIN NA (PORCINE) 5,000 UNITS/ML 1ML VIAL SQ SCH ×2 (11:51→22:08)
[2021-08-21] MEDS: POLYETHYLENE GLYCOL (HEALTHYLAX) 3350 17 GM PACKET PO SCH (11:51)
[2021-08-21] MEDS: methylPREDNISolone NA SUCC 40 MG/1 ML VIAL IVPUSH SCH ×2 (11:52→22:08)
[2021-08-21] MEDS: CEFTRIAXONE 1 GM in DEXTROSE 5%-WATER - 50 ML IVPB SCH (11:53)
[2021-08-21] MEDS: BUDESONIDE/FORMETEROL FUMARATE 160/4.5 mcg INHALER IH SCH ×2 (11:53→22:09)
[2021-08-21] MEDS: AZITHROMYCIN IVPB 250 MG in DEXTROSE 5%-WATER - 250 ML IVPB SCH (12:21)
[2021-08-21] MEDS: SENNOSIDES 8.6MG TABLET (FP) PO SCH (22:08)
[2021-08-22] MEDS ORDERED: cefTRIAXone SODIUM 1 GM VIAL ONE (09:21)
[2021-08-22] MEDS ORDERED: DEXTROSE 5%-WATER - 50 ML IVPB ONE (09:21)
[2021-08-22] MEDS: methylPREDNISolone NA SUCC 40 MG/1 ML VIAL IVPUSH SCH ×2 (09:52→22:04)
[2021-08-22] MEDS: PANTOPRAZOLE 40 MG TABLET PO SCH (09:52)
[2021-08-22] MEDS: CEFTRIAXONE 1 GM in DEXTROSE 5%-WATER - 50 ML IVPB SCH ×2 (09:52→10:12)
[2021-08-22] MEDS: HEPARIN NA (PORCINE) 5,000 UNITS/ML 1ML VIAL SQ SCH ×2 (09:53→22:04)
[2021-08-22] MEDS: busPIRone HCL 5 MG TABLET PO SCH ×2 (09:53→22:04)
[2021-08-22] MEDS: guaiFENesin 600 MG TABLET.ER (FP) PO SCH ×2 (09:53→22:04)
[2021-08-22] MEDS: BUDESONIDE/FORMETEROL FUMARATE 160/4.5 mcg INHALER IH SCH ×2 (10:11→22:04)
[2021-08-22] MEDS: POLYETHYLENE GLYCOL (HEALTHYLAX) 3350 17 GM PACKET PO SCH (10:26)
[2021-08-22] MEDS: AZITHROMYCIN IVPB 250 MG in DEXTROSE 5%-WATER - 250 ML IVPB SCH (11:13)
[2021-08-22] MEDS: SENNOSIDES 8.6MG TABLET (FP) PO SCH (22:04)
[2021-08-23] MEDS ORDERED: cefTRIAXone SODIUM 1 GM VIAL ONE (09:49)
[2021-08-23] MEDS ORDERED: DEXTROSE 5%-WATER - 50 ML IVPB ONE (09:49)
[2021-08-23] MEDS: PANTOPRAZOLE 40 MG TABLET PO SCH (09:53)
[2021-08-23] MEDS: guaiFENesin 600 MG TABLET.ER (FP) PO SCH ×2 (09:53→21:18)
[2021-08-23] MEDS: POLYETHYLENE GLYCOL (HEALTHYLAX) 3350 17 GM PACKET PO SCH (09:53)
[2021-08-23] MEDS: busPIRone HCL 5 MG TABLET PO SCH ×2 (09:53→21:18)
[2021-08-23] MEDS: methylPREDNISolone NA SUCC 40 MG/1 ML VIAL IVPUSH SCH ×2 (09:54→22:40)
[2021-08-23] MEDS: HEPARIN NA (PORCINE) 5,000 UNITS/ML 1ML VIAL SQ SCH ×2 (09:54→22:09)
[2021-08-23] MEDS: BUDESONIDE/FORMETEROL FUMARATE 160/4.5 mcg INHALER IH SCH ×2 (10:31→21:21)
[2021-08-23] MEDS: CEFTRIAXONE 1 GM in DEXTROSE 5%-WATER - 50 ML IVPB SCH (10:44)
[2021-08-23] MEDS ORDERED: ALBUTEROL SO4 0.083% IH SOL 2.5 MG/3 ML VIAL.NEB. NEB PRN (11:25)
[2021-08-23] MEDS: AZITHROMYCIN IVPB 250 MG in DEXTROSE 5%-WATER - 250 ML IVPB SCH ×2 (11:41→11:45)
[2021-08-23] MEDS: SENNOSIDES 8.6MG TABLET (FP) PO SCH (22:09)
[2021-08-24] MEDS: CEFTRIAXONE 1 GM in DEXTROSE 5%-WATER - 50 ML IVPB SCH (09:38)
[2021-08-24] MEDS: methylPREDNISolone NA SUCC 40 MG/1 ML VIAL IVPUSH SCH (09:39)
[2021-08-24] MEDS: POLYETHYLENE GLYCOL (HEALTHYLAX) 3350 17 GM PACKET PO SCH (09:41)
[2021-08-24] MEDS: PANTOPRAZOLE 40 MG TABLET PO SCH (09:41)
[2021-08-24] MEDS: guaiFENesin 600 MG TABLET.ER (FP) PO SCH (09:41)
[2021-08-24] MEDS: HEPARIN NA (PORCINE) 5,000 UNITS/ML 1ML VIAL SQ SCH (09:41)
[2021-08-24] MEDS: busPIRone HCL 5 MG TABLET PO SCH (09:41)
[2021-08-24] MEDS: BUDESONIDE/FORMETEROL FUMARATE 160/4.5 mcg INHALER IH SCH (09:42)
[2021-08-24] MEDS ORDERED: FLUTICASONE/UMECLIDIN/VILANTER(200-62.5-25 TRELEGY ELLIPTA) INAHLER IH SCH (10:00)
[2021-08-24 18:30] VITALS: BP 110/89; PULSE 96; TEMP 97.8
[2021-08-25] MEDS ORDERED: predniSONE 20 MG TABLET (UD) PO SCH (10:00)
== END 2021-08-24 20:45 | DRG 190 ==
LOC: JER 13:36 → JERBED 16:41 → J4W 08-12 20:59 → J5S 08-20 16:35
PROVIDERS: ADMIT Internal Medicine; ATTEND Internal Medicine
DX: J44.1 Chronic obstructive pulmonary disease with (acute) exacerbation (principal); E43 Unspecified severe protein-calorie malnutrition; R64 Cachexia; Z68.1 Body mass index [BMI] 19.9 or less, adult; J96.11 Chronic respiratory failure with hypoxia; I50.32 Chronic diastolic (congestive) heart failure; D64.9 Anemia, unspecified; R07.89 Other chest pain; M85.88 Other specified disorders of bone density and structure, other site; M40.299 Other kyphosis, site unspecified; E03.9 Hypothyroidism, unspecified; D72.819 Decreased white blood cell count, unspecified; F41.9 Anxiety disorder, unspecified
CPT/HCPCS: 36415; 71045-TC-FY; 71275-TC; 74019-TC-FY; 80053; 80061; 83036; 83880; 84436; 84439; 84443; 84484; 85025; 85610; 93005; 93010; 93306-TC; 94640; 97116-GP; 97162-GP; 99285-25; C9803-CS; J1644; Q9967; U0003; U0005

== ENCOUNTER 2022-06-14 10:53 | Inpatient (IN) | payer OTHER ==
[2022-06-14] MEDS ORDERED: ACETAMINOPHEN 1000 MG/100 ML BAG IVPB ONE (11:31)
[2022-06-14] MEDS ORDERED: ACETAMINOPHEN INJECTION 100 ML IVPB ONE (11:36)
[2022-06-14 11:57] LABS: BASO % 0.6 % (0-2.0); EOS % 0.4 % (0-4.5); HEMATOCRIT 36.8 % (32.4-45.2); HEMOGLOBIN 12.2 GM/dL (10.7-15.3); LYMPH % 17.3 % (8-40); MCH 28.1 pg (25.7-33.7); MCHC 33.2 g/dl (32.0-36.0); MEAN CELL VOLUME 84.8 fl (80-96); MONO % 9.1 % (3.8-10.2); NEUT % 72.6 % (42.8-82.8); PLATELET COUNT 301 10^3/uL (134-434); RBC 4.34 M/mm3 (3.60-5.2); RDW 14.3 % (11.6-15.6); WHITE BLOOD COUNT 7.1 K/mm3 (4.0-10.0)
[2022-06-14 11:59] LABS: EPI CELLS 22 /uL (0-25.1); HYALINE CASTS 2 /uL (0-3.1); PH,URINE 5.5 (5.0-8.0); URINE APPEARANCE CLEAR; URINE BACTERIA 17 /uL (0-1359); URINE BILIRUBIN NEGATIVE (NEGATIVE); URINE COLOR YELLOW; URINE GLUCOSE (UA) NEGATIVE (NEGATIVE); URINE KETONE TRACE (NEGATIVE); URINE LEUK ESTERASE 1+ (NEGATIVE); URINE NITRITE NEGATIVE (NEGATIVE); URINE PROTEIN TRACE (NEGATIVE); URINE RBC 23 /uL (0-23.9); URINE UROBILINOGEN 0.2 mg/dL (0.2-1.0); URINE WBC 93 /uL (0-25.8)
[2022-06-14 12:18] LABS: ALBUMIN 3.3 g/dl (3.4-5.0); BLOOD UREA NITROGEN 22.8 mg/dL (7-18); CALCIUM 9.8 mg/dL (8.5-10.1)
[2022-06-14 12:20] LABS: CREATININE 0.7 mg/dL (0.55-1.3)
[2022-06-14 12:23] LABS: BILIRUBIN,TOTAL 0.3 mg/dL (0.2-1); TOT PROT 6.6 g/dl (6.4-8.2)
[2022-06-14 18:58] VITALS: BMI 13.0
[2022-06-14] MEDS: ACETAMINOPHEN 1000 MG/100 ML BAG IVPB PRN (22:56)
[2022-06-14] MEDS: busPIRone HCL 5 MG TABLET PO SCH (22:57)
[2022-06-14] MEDS: BUDESONIDE/FORMETEROL FUMARATE 160/4.5 mcg INHALER IH SCH (22:57)
[2022-06-15 07:59] LABS: BASO % 0.7 % (0-2.0); EOS % 1.8 % (0-4.5); HEMATOCRIT 34.5 % (32.4-45.2); HEMOGLOBIN 11.6 GM/dL (10.7-15.3); LYMPH % 28.1 % (8-40); MCHC 33.6 g/dl (32.0-36.0); MEAN CELL VOLUME 83.6 fl (80-96); MEAN PLT VOLUME 8.4 fl (7.5-11.1); MONO % 9.2 % (3.8-10.2); NEUT % 60.2 % (42.8-82.8); PLATELET COUNT 266 10^3/uL (134-434); RBC 4.13 M/mm3 (3.60-5.2)
[2022-06-15 08:01] LABS: CALCIUM 8.8 mg/dL (8.5-10.1)
[2022-06-15 08:02] LABS: ALBUMIN 2.8 g/dl (3.4-5.0); BLOOD UREA NITROGEN 19.3 mg/dL (7-18)
[2022-06-15 08:04] LABS: CREATININE 0.7 mg/dL (0.55-1.3)
[2022-06-15 08:05] LABS: BILIRUBIN,TOTAL 0.4 mg/dL (0.2-1)
[2022-06-15 08:06] LABS: TOT PROT 5.8 g/dl (6.4-8.2)
[2022-06-15] MEDS: POLYETHYLENE GLYCOL (HEALTHYLAX) 3350 17 GM PACKET PO SCH (09:53)
[2022-06-15] MEDS: PANTOPRAZOLE 40 MG TABLET PO SCH (09:53)
[2022-06-15] MEDS: busPIRone HCL 5 MG TABLET PO SCH ×2 (09:53→21:29)
[2022-06-15] MEDS: ENOXAPARIN NA (PORCINE) 40 MG/0.4 ML DISP.SYRIN SQ SCH (09:53)
[2022-06-15] MEDS: BUDESONIDE/FORMETEROL FUMARATE 160/4.5 mcg INHALER IH SCH ×2 (09:53→21:30)
[2022-06-15] MEDS: ACETAMINOPHEN 1000 MG/100 ML BAG IVPB PRN ×2 (10:55→21:31)
[2022-06-16 00:04] VITALS: RESP 20
[2022-06-16 08:09] LABS: BASO % 0.7 % (0-2.0); EOS % 1.6 % (0-4.5); HEMATOCRIT 35.7 % (32.4-45.2); HEMOGLOBIN 11.9 GM/dL (10.7-15.3); LYMPH % 24.6 % (8-40); MCH 28.7 pg (25.7-33.7); MCHC 33.4 g/dl (32.0-36.0); MEAN CELL VOLUME 85.7 fl (80-96); MEAN PLT VOLUME 8.5 fl (7.5-11.1); MONO % 8.6 % (3.8-10.2); NEUT % 64.5 % (42.8-82.8); PLATELET COUNT 290 10^3/uL (134-434); RBC 4.16 M/mm3 (3.60-5.2); RDW 13.6 % (11.6-15.6); WHITE BLOOD COUNT 5.4 K/mm3 (4.0-10.0)
[2022-06-16 08:22] LABS: ALBUMIN 2.8 g/dl (3.4-5.0); BLOOD UREA NITROGEN 15.4 mg/dL (7-18); CALCIUM 9.1 mg/dL (8.5-10.1)
[2022-06-16 08:25] LABS: CREATININE 0.7 mg/dL (0.55-1.3)
[2022-06-16 08:26] LABS: BILIRUBIN,TOTAL 0.2 mg/dL (0.2-1); TOT PROT 6.1 g/dl (6.4-8.2)
[2022-06-16 10:36] VITALS: BP 111/72; PULSE 82; TEMP 97.8
[2022-06-16] MEDS: POLYETHYLENE GLYCOL (HEALTHYLAX) 3350 17 GM PACKET PO SCH (10:36)
[2022-06-16] MEDS: busPIRone HCL 5 MG TABLET PO SCH (10:36)
[2022-06-16] MEDS: PANTOPRAZOLE 40 MG TABLET PO SCH (10:36)
[2022-06-16] MEDS: ENOXAPARIN NA (PORCINE) 40 MG/0.4 ML DISP.SYRIN SQ SCH (10:36)
[2022-06-16] MEDS: BUDESONIDE/FORMETEROL FUMARATE 160/4.5 mcg INHALER IH SCH (10:37)
== END 2022-06-16 13:17 | disposition home or self-care (01) | DRG 312 ==
LOC: JER 10:53 → JERBED 15:40 → J4W 18:43
PROVIDERS: ADMIT Internal Medicine; ATTEND Internal Medicine
DX: R55 Syncope and collapse (principal); E43 Unspecified severe protein-calorie malnutrition; Z68.1 Body mass index [BMI] 19.9 or less, adult; I50.32 Chronic diastolic (congestive) heart failure; I11.0 Hypertensive heart disease with heart failure; S00.83XA Contusion of other part of head, initial encounter; R07.89 Other chest pain; R00.0 Tachycardia, unspecified; J44.9 Chronic obstructive pulmonary disease, unspecified; I25.119 Atherosclerotic heart disease of native coronary artery with unspecified angina pectoris; M41.9 Scoliosis, unspecified; D64.9 Anemia, unspecified; M54.50 Low back pain, unspecified; W18.30XA Fall on same level, unspecified, initial encounter; Y92.098 Other place in other non-institutional residence as the place of occurrence of the external cause
CPT/HCPCS: 0241U-QW; 36415; 70450-TC; 71045-TC-FY; 72125-TC; 72170-TC-FY; 73030-TC-RT-FY; 80053; 81003; 84484; 85025; 87086; 93005; 93010; 97116-GP; 97161-GP; 99285-25

== ENCOUNTER 2022-10-10 03:20 | Inpatient (IN) | payer OTHER ==
[2022-10-10] MEDS ORDERED: morphine CARPU-JECT 4 MG/1 ML DISP.SYRIN IVPUSH ONE (03:34)
[2022-10-10 03:37] VITALS: RESP 18
[2022-10-10] MEDS ORDERED: morphine SULFATE 4 MG/ML VIAL ONE (03:40)
[2022-10-10 03:54] LABS: BASO % 0.4 % (0-2.0); EOS % 1.7 % (0-4.5); HEMATOCRIT 33.7 % (32.4-45.2); HEMOGLOBIN 11.3 GM/dL (10.7-15.3); LYMPH % 38.9 % (8-40); MCH 26.2 pg (25.7-33.7); MCHC 33.4 g/dl (32.0-36.0); MEAN CELL VOLUME 78.4 fl (80-96); MEAN PLT VOLUME 7.5 fl (7.5-11.1); MONO % 10.2 % (3.8-10.2); NEUT % 48.8 % (42.8-82.8); PLATELET COUNT 274 10^3/uL (134-434); RBC 4.29 M/mm3 (3.60-5.2); RDW 14.4 % (11.6-15.6); WHITE BLOOD COUNT 7.7 K/mm3 (4.0-10.0)
[2022-10-10 04:04] LABS: INR 0.97 (0.83-1.09); PROTHROMBIN TIME (PATIENT) 11.2 SEC (9.7-13.0)
[2022-10-10 04:07] LABS: ACTIVATED PTT 27.2 SECONDS (25.2-36.5)
[2022-10-10 04:22] LABS: POTASSIUM 4.4 mmol/L (3.5-5.1)
[2022-10-10 04:24] LABS: ALBUMIN 3.4 g/dl (3.4-5.0); BLOOD UREA NITROGEN 16.4 mg/dL (7-18); CALCIUM 9.4 mg/dL (8.5-10.1)
[2022-10-10 04:27] LABS: CREATININE 0.8 mg/dL (0.55-1.3)
[2022-10-10 04:29] LABS: BILIRUBIN,TOTAL 0.2 mg/dL (0.2-1); TOT PROT 6.2 g/dl (6.4-8.2)
[2022-10-10] MEDS ORDERED: HYDROmorphone HCl 2 MG/ML VIAL IVPUSH ONE (04:54)
[2022-10-10] MEDS ORDERED: HYDROmorphone HCl 2 MG/ML VIAL ONE (05:04)
[2022-10-10] MEDS ORDERED: ASPIRIN 81 MG CHEWABLE TABLETS PO ONE (07:16)
[2022-10-10] MEDS ORDERED: CLOPIDOGREL BISULFATE 300 MG TABLET PO ONE (07:16)
[2022-10-10] MEDS ORDERED: CLOPIDOGREL BISULFATE 300 MG TABLET ONE (07:47)
[2022-10-10] MEDS ORDERED: ASPIRIN 81 MG CHEWABLE TABLETS ONE (07:48)
[2022-10-10] MEDS ORDERED: PANTOPRAZOLE 40 MG TABLET PO SCH (10:00)
[2022-10-10] MEDS ORDERED: POLYETHYLENE GLYCOL (HEALTHYLAX) 3350 17 GM PACKET PO SCH (10:00)
[2022-10-10] MEDS ORDERED: ENOXAPARIN NA (PORCINE) 40 MG/0.4 ML DISP.SYRIN SQ SCH (10:00)
[2022-10-10] MEDS: busPIRone HCL 5 MG TABLET PO SCH ×2 (10:10→22:05)
[2022-10-10] MEDS: BUDESONIDE/FORMETEROL FUMARATE 160/4.5 mcg INHALER IH SCH ×2 (11:35→22:05)
[2022-10-10] MEDS ORDERED: morphine SULFATE 4 MG/ML VIAL IVPUSH PRN (12:34)
[2022-10-10 13:58] VITALS: BMI 15.9
[2022-10-10] MEDS ORDERED: ONDANSETRON 4 MG/2 ML VIAL IVPUSH ONE (16:00)
[2022-10-10] MEDS ORDERED: SODIUM CHLORIDE 500 ML IV ONE (18:30)
[2022-10-10] MEDS ORDERED: ACETAMINOPHEN 1000 MG/100 ML BAG IVPB PRN ×3 (18:33→21:26)
[2022-10-10] MEDS ORDERED: DEXTROSE 5%-0.45% SALINE 1,000 ML IV SCH (18:45)
[2022-10-10 21:36] VITALS: PULSE 106
[2022-10-10] MEDS ORDERED: SENNOSIDES 8.6MG TABLET (FP) PO SCH (22:00)
[2022-10-10] MEDS ORDERED: ATORVASTATIN CA 80 MG TABLET (FP) PO SCH (23:44)
[2022-10-11 07:15] VITALS: BP 91/55; TEMP 97.8
[2022-10-11] MEDS ORDERED: ASPIRIN COATED 81 MG TABLET.EC PO SCH (10:00)
[2022-10-11] MEDS ORDERED: ENOXAPARIN NA (PORCINE) 40 MG/0.4 ML DISP.SYRIN SQ SCH (10:00)
== END 2022-10-11 03:00 | disposition short-term general hospital (02) | DRG 535 ==
LOC: JER 03:20 → JERBED 06:53 → J4W 08:45
PROVIDERS: ADMIT Internal Medicine; ATTEND Internal Medicine
DX: S72.143A Displaced intertrochanteric fracture of unspecified femur, initial encounter for closed fracture (principal); I21.4 Non-ST elevation (NSTEMI) myocardial infarction; R77.8 Other specified abnormalities of plasma proteins; W19.XXXA Unspecified fall, initial encounter; Y93.9 Activity, unspecified; Y92.89 Other specified places as the place of occurrence of the external cause; Y99.9 Unspecified external cause status
CPT/HCPCS: 36415; 70450-TC; 71045-TC-FY; 72125-TC; 72170-TC-FY; 73502-TC-RT-FY; 80053; 82550; 83735; 84484; 85025; 85610; 85730; 86850; 86900; 86901; 87635; 93005; 93010; 93306-TC; 99285-25

== ENCOUNTER 2024-08-06 08:41 | Emergency (ER) | payer OTHER ==
[2024-08-06 09:04] VITALS: PULSE 83; TEMP 98.1; BMI 14.0
[2024-08-06] MEDS ORDERED: LIDOCAINE 4% PATCH TP ONE (09:56)
[2024-08-06] MEDS ORDERED: ACETAMINOPHEN INJECTION 100 ML ONE (09:56)
[2024-08-06] MEDS: LIDOCAINE 4% PATCH TP ONE (10:00)
[2024-08-06 10:06] LABS: PH,URINE 7.5 (5.0-8.0); URINE APPEARANCE CLEAR; URINE BILIRUBIN NEGATIVE (NEGATIVE); URINE COLOR YELLOW; URINE GLUCOSE (UA) NEGATIVE (NEGATIVE); URINE KETONE NEGATIVE (NEGATIVE); URINE LEUK ESTERASE NEGATIVE (NEGATIVE); URINE NITRITE NEGATIVE (NEGATIVE); URINE PROTEIN NEGATIVE (NEGATIVE); URINE UROBILINOGEN 0.2 mg/dL (0.2-1.0)
[2024-08-06] MEDS: ACETAMINOPHEN 1000 MG/100 ML BAG IVPB ONE (10:08)
[2024-08-06 10:31] LABS: ABSOLUTE IMMATURE GRANULOCYTES 0.02 x10^3/uL (0.0-0.031); BASOPHILS # 0.04 x10^3/uL (0.01-0.08); EOSINOPHIL % 2.3 % (0.7-5.8); EOSINOPHILS # 0.11 x10^3/uL (0.04-0.36); HEMOGLOBIN 9.8 g/dL (11.2-15.7); MCHC 29.7 g/dl (32.2-35.5); MEAN CELL VOLUME 82.7 fl (79.4-94.8); MONOCYTE # 0.48 x10^3/uL (0.24-0.86); MONOCYTE % 9.9 % (4.7-12.5); PLATELET COUNT 247 x10^3/uL (182-369); RDW 16.7 % (12.4-16.6)
[2024-08-06 10:42] LABS: INR 1.12 (0.83-1.09); PROTHROMBIN TIME (PATIENT) 12.3 SEC (9.7-13.0)
[2024-08-06 10:45] LABS: ACTIVATED PTT 32.6 SECONDS (25.2-36.5)
[2024-08-06 10:48] LABS: POTASSIUM 4.6 mmol/L (3.5-5.1)
[2024-08-06 10:50] LABS: ALBUMIN 3.5 g/dl (3.4-5.0); CALCIUM 9.7 mg/dL (8.5-10.1)
[2024-08-06 10:51] LABS: BLOOD UREA NITROGEN 15.2 mg/dL (7-18)
[2024-08-06 10:54] LABS: CREATININE 0.6 mg/dL (0.55-1.3)
[2024-08-06 10:55] LABS: BILIRUBIN,TOTAL 0.4 mg/dL (0.2-1); TOT PROT 6.6 g/dl (6.4-8.2)
[2024-08-06 16:58] VITALS: BP 103/64; RESP 17
[2024-08-06] MEDS ORDERED: LIDOCAINE PATCH REMOVAL MC ONE (22:00)
== END 2024-08-06 16:55 | disposition home or self-care (01) ==
LOC: JER 08:41
PROC: 3E033NZ Introduction of Analgesics, Hypnotics, Sedatives into Peripheral Vein, Percutaneous Approach (ICD-10-PCS; principal; 2024-08-06)
DX: M54.50 Low back pain, unspecified (principal); G89.29 Other chronic pain; R39.15 Urgency of urination; R33.9 Retention of urine, unspecified
CPT/HCPCS: 36415; 80053; 81003; 83690; 85025; 85610; 85730; 86850; 86900; 86901; 87086; 99284-25; J0131

== ENCOUNTER 2024-12-02 09:19 | Inpatient (IN) | payer OTHER ==
[2024-12-02 09:47] VITALS: BMI 14.1
[2024-12-02 10:28] LABS: BG HCT 38.0 % (32.4-45.2); VENOUS BASE EXCESS 1.5 mmol/L (-2-2); VENOUS O2 SATURATION 46.4 % (70-80); VENOUS PCO2 45.1 mmHg (38-52); VENOUS PH 7.392 (7.310-7.410)
[2024-12-02 10:35] LABS: ABSOLUTE IMMATURE GRANULOCYTES 0.01 x10^3/uL (0.0-0.031); BASOPHILS # 0.03 x10^3/uL (0.01-0.08); EOSINOPHIL % 1.2 % (0.7-5.8); EOSINOPHILS # 0.05 x10^3/uL (0.04-0.36); MCHC 30.8 g/dl (32.2-35.5); MEAN CELL VOLUME 88.2 fl (79.4-94.8); MEAN PLT VOLUME 10.5 fl (9.4-12.3); MONOCYTE # 0.30 x10^3/uL (0.24-0.86); MONOCYTE % 7.3 % (4.7-12.5); RDW 15.9 % (12.4-16.6)
[2024-12-02 10:37] LABS: INR 1.06 (0.83-1.09); PROTHROMBIN TIME (PATIENT) 11.7 SEC (9.7-13.0)
[2024-12-02 10:40] LABS: ACTIVATED PTT 32.4 SECONDS (25.2-36.5)
[2024-12-02 10:46] LABS: GLUCOSE,RANDOM 88.0 mg/dL (74-106); TOT PROT 7.1 g/dl (6.4-8.2)
[2024-12-02 10:47] LABS: CO2 27.0 mmol/L (21-32)
[2024-12-02 10:49] LABS: ALK PHOS 95.0 U/L (40-150)
[2024-12-02 10:52] LABS: CREATININE 0.6 mg/dL (0.55-1.3); SGOT/AST 35.0 U/L (5-34); SGPT/ALT 15.0 U/L (0-55)
[2024-12-02 13:30] LABS: GLUCOSE,RANDOM 88.0 mg/dL (74-106); TOT PROT 7.2 g/dl (6.4-8.2)
[2024-12-02 13:31] LABS: CO2 27.0 mmol/L (21-32)
[2024-12-02 13:33] LABS: ALK PHOS 102.0 U/L (40-150)
[2024-12-02 13:36] LABS: CREATININE 0.64 mg/dL (0.55-1.3); SGOT/AST 20.0 U/L (5-34); SGPT/ALT 21.0 U/L (0-55)
[2024-12-02 15:05] VITALS: RESP 17
[2024-12-02 19:06] VITALS: BP 123/70; PULSE 83; TEMP 97.9
== END 2024-12-02 19:46 | disposition home or self-care (01) | DRG 312 ==
LOC: JER 09:19 → JERBED 14:26
PROVIDERS: ADMIT Student in an Organized Health Care Education/Training Program; ATTEND Internal Medicine
DX: R55 Syncope and collapse (principal); R06.02 Shortness of breath; J44.9 Chronic obstructive pulmonary disease, unspecified; I10 Essential (primary) hypertension; E78.5 Hyperlipidemia, unspecified
CPT/HCPCS: 36415; 71045-TC-FY; 74175-TC; 80053; 82803; 83735; 83880; 84484; 85025; 85610; 85730; 86850; 86900; 86901; 93005; 93010; 99285-25